=== PATIENT | female | born 1970 | race Caucasian/White ===

== ENCOUNTER → 2019-04-11 11:23 | Outpatient (CLI) | payer OTHER, SELFPAY ==
[2019-04-15 03:06] LABS: Clam <0.10 kU/L (Class 0); Codfish <0.10 kU/L (Class 0); Corn 0.15 kU/L (Class 0/I); Egg, White <0.10 kU/L (Class 0); Peanut 0.25 kU/L (Class 0/I); SCALLOP 0.19 kU/L (Class 0/I); Shrimp <0.10 kU/L (Class 0); Soybean 0.16 kU/L (Class 0/I); Walnut, (Food) 0.11 kU/L (Class 0/I); Wheat 0.22 kU/L (Class 0/I)
[2019-04-17 13:49] LABS: Immunoglobulin E 448 IU/mL (6-495); SESAME SEED 0.23 kU/L (Class 0/I)
== END ==
PROVIDERS: Referring Provider Otolaryngology Otolaryngology/Facial Plastic Surgery; Visit Provider Otolaryngology Otolaryngology/Facial Plastic Surgery
DX: T78.40XA Allergy, unspecified, initial encounter (principal)
CPT/HCPCS: 36415; 82785; 86003